=== PATIENT | female | born 1940 | race Caucasian/White ===

== ENCOUNTER → 2016-04-18 | Day surgery (SDC) | payer MEDICARE, BC ==
[~2016-04-18] MED LIST: BENADRYL PO; BENADRYL25 MG PO; CALCITONIN SALMON; CALCIUM 500 + D1 TAB PO; COLACE50 MG; CYMBALTA PO; FIORINAL CAPSUL1 CAP PO; HYDROCODON-ACE1 EAC5 PO; KLONOPIN PO; KLONOPIN1 MG PO; LEVOTHYROXINE75 MCG PO; LISINOPRIL20 MG PO; MAGNESIUM500 MG; MAGNESIUM500 MG PO; REGLAN PO; SERTRALINE HCL100 MG PO; STOOL SOFTENER100 M1 PO; SYNTHROID PO; SYNTHROID88 MCG PO; VICODIN 5/500 T1 TAB PO; ZANAFLEX2 M1 PO; ZOHYDRO ER15 M1; ZOLOFT PO
--- NOTE | ~2016-04-18 | OR ---
Unit #: [id number] #: [id number] Patient: PAUL ESCOBEDO [id number] [address] [address] [id number] O MR#: [id number] NAME: PAUL ESCOBEDO ROOM: Date of Procedure: 04/18/2016 Admission Date: 04/18/2016 Surgeon: Brenton Vargas M.D. : 1940 Attending Physician: Brenton Vargas M.D. Primary Care Physician: Jesus Alberto Cartagena M.D. OPERATIVE REPORT PREOPERATIVE DIAGNOSES Back pain, radiculopathy, degenerative disk disease. POSTOPERATIVE DIAGNOSES Back pain, radiculopathy, degenerative disk disease. PROCEDURE PERFORMED Lumbar epidural steroid injection with fluoroscopic guidance for needle localization. HISTORY OF PRESENT ILLNESS The patient is a 75-year-old female with return of back and lower extremity pain, associated with multilevel multifactorial degenerative disk disease and spondylolisthesis. She is not a surgical candidate. In the past, she had been treated with epidural steroids and done well for about 18 months. She had re-flare of the problem. Two injections were done to this point over the last several weeks and given her 60% to 70% settling of her symptom complex. Based on good partial response, pathology, and symptomatology, we are going to proceed with a final injection today. DESCRIPTION OF PROCEDURE The patient was placed in a seated position. Standard monitors were applied. Sterile prep and drape of the lumbar area was performed. The skin then at the L4 level was localized with 1% lidocaine. An 18-gauge Amnistead needle was then advanced via loss of resistance technique and fluoroscopic guidance in toward the epidural space. The patient did not complain of any pain or paresthesia during needle advancement. After confirming proper positioning with fluoroscopy and radiographic contrast, 80 mg Depo-Medrol and 4 mL of 0.125% bupivacaine were deposited. The patient tolerated the procedure otherwise well and was discharged to recovery room in stable condition. Dictated by... Melita BarrazaP/brittl TD: 04/18/2016 23:13 Unit #: [id number] #: [id number] Patient: PAUL ESCOBEDO JOB #: [id number] OPERATIVE REPORT X Brenton Vargas MD X PROCEDURE OPERATIVE NOTE
== END | disposition home or self-care (01) ==
LOC: CCSC 09:48
DX: M51.16 Intervertebral disc disorders with radiculopathy, lumbar region (principal); M43.16 Spondylolisthesis, lumbar region; K21.9 Gastro-esophageal reflux disease without esophagitis
CPT/HCPCS: J1040; J2250

== ENCOUNTER → 2016-09-23 | Outpatient (CLI) | payer MEDICARE, BC ==
--- NOTE | ~2016-09-23 | CT4 ---
[facility] A Service of [facility] RADIOLOGY TEXT RESULTS PATIENT: PAUL ESCOBEDO LOCATION: [facility] : 42 UNIT #: [id number] AGE: [address]: Jesus Alberto Cartagena MD SEX: F ORDER DR: [id number] [facility] [address] [place], [place] [address] [id number] O MR#: [id number] Acc #: [id number] NAME: PAUL ESCOBEDO : 1940 SEX: F STUDY DATE/TIME: 09/23/2016 16:07 UNIT: [facility] ROOM: STUDY DESCRIPTION: CT Abd and Pelv Wo Cont Attending Physician: Jesus Alberto Cartagena M.D. Referring Physician: Jesus Alberto Cartagena M.D. Ordering Physician: Jesus Alberto Cartagena M.D. Primary Care Physician: Jesus Alberto Cartagena M.D. MEDICAL IMAGING REPORT This report is preliminary unless electronic signature is present EXAM CT abdomen and pelvis without contrast. INDICATIONS Nausea, vomiting, generalized abdominal pain and diarrhea for the past month. PROCEDURE Unenhanced CT of the abdomen and pelvis. This CT exam was performed with one or more of the following radiation dose reduction techniques: automatic exposure control, adjustment of mA and/or kV according to patient size, and iterative reconstruction. COMPARISON 03/17/2006. FINDINGS Abdomen without contras: Included lung bases are predominately clear. Atelectasis in the lingula. Liver, spleen, kidneys and adrenal glands and pancreas are unremarkable. Previous cholecystectomy. Common duct measures up to 1.9 cm and is unchanged from the prior. Moderate colonic stool burden. Bowel loops nondilated. Pelvis with contrast. No pelvic mass or fluid. Previous hysterectomy. No aggressive appearing bone lesion. IMPRESSION 1. No acute findings in the abdomen or pelvis. 2. Moderate colonic stool burden. [facility] A Service of [facility] RADIOLOGY TEXT RESULTS PATIENT: PAUL ESCOBEDO LOCATION: [facility] : 42 UNIT #: [id number] AGE: [address]: Jesus Alberto Cartagena MD SEX: F ORDER DR: Dictated by... Herve Serna M.D. THIS IS AN ELECTRONICALLY VERIFIED REPORT Herve Serna M.D. at 09/24/2016 5:00 PM LEWIS/rajesh TD: 09/24/2016 13:05 JOB #: [id number] MEDICAL IMAGING REPORT Page 1 of 1 COPY
== END | disposition home or self-care (01) ==
LOC: CCAT 14:57
DX: R11.2 Nausea with vomiting, unspecified (principal)
CPT/HCPCS: 74176